=== PATIENT | female | born 1960 | race Hispanic/Latino ===

== ENCOUNTER 2018-07-16 17:04 | Inpatient (IN) | payer MEDICARE ==
[2018-07-16 17:29] VITALS: BMI 26.4
[2018-07-16] MEDS ORDERED: Magnesium Hydroxide Susp 30 ml UD PO PRN (17:35)
[2018-07-16] MEDS ORDERED: Bismuth Subsalicylate 262 mg/15 ml Sus (240 ml) PO PRN (17:35)
--- NOTE | 2018-07-16 21:29 | PCM.BM ---
<Buddy Durant - Last Filed: 07/16/18 21:27> Treatment Plan Problems - Problems identified on initial assessmt Altered Thought Process Date Initiated: 07/16/18 Time Initiated: 21:28 Assessment reference: NA Status: Active Treatment assets and liabiliti Patient Assests: adapts well, cooperative, ADL independent, negotiates basic needs Patient Liabilities: medical problems - Milieu Protocol Maintain good personal hygiene: daily Encourage regular showers, daily Remind patient to perform daily oral care, daily Assist patient to perform ADL's Maintain personal safety: every shift Educate patient to report safety concerns to staff, every shift Monitor environment for contraband/sharps Medication safety: Monitor for expected outcome, potential side effects: every shift, Assess barriers to learning: every shift, Assess readiness for medication education: every shift <Bev Berman - Last Filed: 07/17/18 11:33> - Diagnosis (1) Bipolar disorder with psychotic features Status: Acute Interventions: Medication management, Individual and group therapy, Psychoeducation 07/17/18 11:33 <Mamie Mora - Last Filed: 07/17/18 13:44> Treatment Plan Problems - Problems identified on initial assessmt Ineffective Impulse Control Date Initiated: 07/16/18 Assessment reference: NA Status: Active Priority: 2 Depression Date Initiated: 07/17/18 Time Initiated: 13:08 Assessment reference: SW Status: Active Priority: 3 Family Contact Family involvement: Famliy/SO not involved Family contact: Other (Pt unable to contact spouse due to active restraining order. ) - Goals for Treatment Patient goals for treatment: Pt will improve overall mood. Pt will be free of suicidal ideation. Pt will develop strategies for thought ditration when ruminating on the past. Pt will learn and use conflict resolution skills. Pt will learn to express feelings verbally without acting out. Pt will explore and resolve conflict with immediate family. Pt will learn to manage with physical healthcare conditions and cope with related stress. Discharge/Continuing Care - Education Needs Education Needs: Family Medication, Family Diagnosis/Disease Process, Family Coping Skills, Family Community resources, Family Health Practices/Safety, Family Personal Hygiene/Grooming, Family Aftercare Safety Plan, Patient Medication, Patient Diagnosis/Disease Process, Patient Coping Skills, Patient Community resources, Patient Health Practices/Safety, Patient Personal Hygiene/Grooming, Patient Aftercare Safety Plan - Discharge Discharge Criteria: Tolerates medication w/o severe side effects, Free of Suicidal thoughts, Free of agitation, Normal sleep pattern, Ability to care for self, Reduction of target symptoms Discharge to:: Home, With Family - Additional Comments 07/17/18 13:18 Pt seen and discussed in team meeting. Reason for admissions reviewed and discussed. Pt was a transfer form [facility]. Pt reported she was referred to [facility] because the psychiatric unit at [facility] is under construction and due to medical issues she cannot be admitted to that same unit. Pt reported being dx with bipolar disorder,depressed type. Pt reported she was first dx in 2011. Pt reported feeling depressed and anxious. Pt was labile during team meeting. Pt observed to be tearful. Pt reported auditory hallucinations stating "that ugly looking doctor." Pt reported that the voices she hears is from a previous psychiatrist and she hears "he is a liar." Pt denied visual hallucinations. Pt reported appetite disturbances reported that she lost weight, unknown pounds. Pt reported "good" sleep pattern. Pt reported having some family issues, but refused to provide further information. Pt reported she does not have an outpatient psychiatrist and that her lung specialist, Dr. Jonel MD was refilling her psych meds. Pt reported that she is or was scheduled to visit [facility]; however, due to hospitalization was unable to make it or will be unable to make it. Pt reported she does not recall for when the appointment was scheduled. Pt denied SI and HI. Pt denied nay paranoia. Pt's medical and social issues reviewed and discussed. Pt's medications reviewed. Please refer to Dr. Berman's progress note for information. Tx plan reviewed and discussed. Pt is agreeable to SW contacting daughterBelia for collateral information and [facility] to re-schedule appointment. Sw to continue to follow case. - Treatment Team Participation Discussed with Family/SO: No Was Patient/Family/SO present at Treatment Team Meeting: Yes
[2018-07-16] MEDS: Insulin Lispro (humaLOG) 100 Units/ml Inj SC SCH (21:35)
[2018-07-16] MEDS: Albuterol 0.083% Inhal Sol (2.5 mg/3 mL) UD IH PRN (22:41)
[2018-07-17 00:37] LABS: SQUAMOUS EPITHIAL 19 /hpf (0-5); URINE BACTERIA RARE (<OCC); URINE BILIRUBIN NEGATIVE (NEGATIVE); URINE BLOOD SMALL (NEGATIVE); URINE CLARITY CLOUDY (Clear); URINE COLOR YELLOW (YELLOW); URINE GLUCOSE (UA) NEG (NEGATIVE); URINE LEUKOCYTE ESTERASE SMALL Leu/uL (Negative); URINE PROTEIN NEGATIVE (NEGATIVE); URINE UROBILINOGEN 0.2-1.0 mg/dL (0.2-1.0)
[2018-07-17 06:55] LABS: HEMOGLOBIN 11.2 g/dL (12.0-16.0); MEAN CELL VOLUME 79.6 fl (81.0-99.0); MEAN CORPUSCULAR HEMOGLOBIN 25.7 pg (27.0-31.0); MEAN CORPUSCULAR HGB CONC 32.2 g/dL (33.0-37.0); RBC 4.37 Mil/uL (3.80-5.20); RED CELL DISTRIBUTION WIDTH 16.7 % (11.5-14.5); WHITE BLOOD COUNT 13.6 K/uL (4.8-10.8)
[2018-07-17 08:05] LABS: ALB/GLOB RATIO 1.2 (1.0-2.1); ALBUMIN 3.5 g/dL (3.5-5.0); CALCIUM 9.4 mg/dL (8.4-10.2)
[2018-07-17 08:22] LABS: T4 7.92 ug/dl (5.5-11.0)
[2018-07-17 08:40] LABS: FERRITIN 15.2 ng/Ml (11.1-264.0)
[2018-07-17] MEDS: Insulin Lispro (humaLOG) 100 Units/ml Inj SC SCH ×4 (08:45→21:14)
[2018-07-17] MEDS: Fluticasone-Salmeterol 100-50mcg Diskus INH SCH ×2 (10:41→21:11)
--- NOTE | 2018-07-17 11:37 | PCM.PSYCH ---
Initial Psychiatric Evaluation - Initial Psychiatric Evaluation Type of Admission: Voluntary Legal Status: Capacity Chief Complaint (in patient's own words): Depression Patient's Reaction to Hospitalization: HPI: 58 yo female w/ h/o Bipolar Disorder w/ Psychotic Features, transferred from [facility], w/ symptoms of worsening depression w/ AH of her previous psychiatrist (No CAH), feelings of hopelessness, and sleep/appetite disturbances. No VH/SI/HI. PPHx: First psychiatrist hospitalization in 2011 at [facility]. >5 psychiatric hospitalizations. Patient has poor compliance with outpatient follow-up following psychiatric admissions. Currently prescribed Cogentin (for EPS), Topamax and Klonopin PMHx: Asthma, COPD ALL: Cefaclor, PCN; (melon, peach, apple) SHx: Lives w/ stepfather, (2012), has adult child (24 yrs old), works in a daycare in [place], denies drugs/etoh/cig use Current Medications: Active Medications Generic Name Dose Route Start Last Admin Trade Name Freq PRN Reason Stop Dose Admin Acetaminophen 650 mg 07/16/18 17:35 Tylenol 325mg Tab PO Q4 PRN Pain, moderate (4-7) Al Hydrox/Mg Hydrox/Simethicone 30 ml 07/16/18 17:35 Maalox Plus 30 Ml PO Q4 PRN Dyspepsia Albuterol Sulfate 2.5 mg 07/16/18 18:05 07/16/18 22:41 Albuterol 0.083% Inhal Darline (2.5 Mg/3 Ml) Ud IH 2.5 mg Q4 PRN Administration SOB Benztropine Mesylate 1 mg 07/17/18 22:00 Cogentin PO HS FRANKIE Benztropine Mesylate 1 mg 07/17/18 11:35 Cogentin PO Q8H PRN EPS Bismuth Subsalicylate 524 mg 07/16/18 17:35 Pepto-Bismol PO Q4 PRN Diarrhea Insulin Human Lispro 0 units 07/16/18 22:00 07/17/18 08:45 Humalog SC Not Given ACHS FRANKIE Protocol Lorazepam 0.5 mg 07/16/18 17:35 Ativan PO 07/30/18 17:36 HS PRN Insomnia Lorazepam 0.5 mg 07/16/18 17:35 Ativan PO 07/30/18 17:36 Q6 PRN Anixety/Agitation Magnesium Hydroxide 30 ml 07/16/18 17:35 Milk Of Magnesia PO HS PRN Constipation Montelukast Sodium 10 mg 07/16/18 22:00 07/16/18 21:11 Singulair PO 10 mg HS FRANKIE Administration Perphenazine 4 mg 07/17/18 22:00 Perphenazine PO HS FRANKIE Fluticasone/Salmeterol 1 puff 07/17/18 09:00 07/17/18 10:41 Advair Diskus 100/50 INH 1 puff Q12 FRANKIE Administration Sucralfate 1 gm 07/17/18 09:00 07/17/18 10:42 Carafate Tab PO 1 gm BID FRANKIE Administration Topiramate 50 mg 07/16/18 22:00 07/16/18 21:10 Topamax PO 50 mg HS FRANKIE Administration Topiramate 100 mg 07/17/18 09:00 07/17/18 10:43 Topamax PO 100 mg BID FRANKIE Administration Past Psychiatric History - Past Psychiatric History Previous Treatment History: Inpatient Pertinent Medical Hx (Current Medical&Sleep Prob, Allergies): Allergies Allergy/AdvReac Type Severity Reaction Status Date / Time cefaclor [From [facility]] Allergy ANAPHYLAXIS Verified 07/16/18 16:29 melon Allergy ANAPHYLAXIS Verified 07/16/18 22:29 peach Allergy ANAPHYLAXIS Verified 07/16/18 22:29 Penicillins Allergy ANAPHYLAXIS Verified 07/16/18 16:29 apple AdvReac ANAPHYLAXIS Verified 07/16/18 22:29 Albuterol 0.083% [Albuterol 0.083% Inhal Darline (2.5 mg/3 ml) UD] 1 inh NEB Q6 07/16/18 Benztropine [Cogentin] 2 mg PO Q12 07/16/18 Fluticasone/Vilanterol 100/25 [Breo Ellipta 100-25 MCG INH] 1 inh INH QD7 07/16/18 Montelukast Sodium [Singulair] 10 mg PO HS 07/16/18 Sucralfate [Carafate] 1 gm PO BID 07/16/18 Topiramate [Topamax] 50 mg PO HS 07/16/18 Topiramate [Topamax] 100 mg PO BID 07/16/18 clonazePAM HALF TAB [Klonopin- HALF TAB] 0.25 mg PO Q12 07/16/18 Review of Systems - Psychiatric Psychiatric: As Per HPI, Anhedonia, Anxiety, Auditory Hallucinations, Behavioral Changes, Change in Appetite, Depression, Difficulty Concentrating, Hallucinations, Hopelessness, Irritability Mental Status Examination - Personal Presentation Personal Presentation: Looks stated age - Affect Affect: Depressed, Other (Labile) - Motor Activity Motor Activity: Calm - Reliability in Providing Information Reliability in Providing Information: Fair - Speech Speech: Organized, Coherent - Mood Mood: Depressed, Anxious - Formal Thought Process Formal Thought Process: Hallucinations - Hallucinations/Delusions Hallucinations: Auditory - Obsessions/Compulsions Obsessions: No Compulsions: No - Cognitive Functions Orientation: Person, Place, Situation, Time Sensorium: Alert Attention/Concentration: Attentive Estimate of Intelligence: Average Judgement: Intact, as evidence by: Insight regarding need for hospitalization Memory: Recent intact, as evidence by: Ability to recall events of the day - Risk Risk: Diminished functioning - Strength & Assets Inventory Strength & Assets Inventory: Cooperative DSM 5 DX - DSM 5 DSM 5 Diagnosis: Bipolar Disorder w/ Psychotic Features - Recommended/Plan of Treatment Treatment Recommendations and Plan of Treatment: Bipolar Disorder w/ Psychotic Features -Admit to psychiatry unit -Hold Klonopin -Continue Topamax -Start Perphenazine -Continue Cogentin -Medicine consult -Individual and group therapy -Psychoeducation -Disposition planning Projected ELOS: 5-7 days Discharge Plan and Discharge Criteria: Discharge when patient is psychiatrically stable - Smoking Cessation Smoking Cessation Initiated: No Reason for not providing: Not indicated
[2018-07-17 12:57] LABS: FOLATE 14.4 ng/mL
--- NOTE | 2018-07-17 15:38 | CP.PCM.CON ---
History of Present Illness - History of Present Illness History of Present Illness: 58 yo female with history of Bipolar DO, Asthma and Hypothyroidism admitted to psyche unit, a tranfer from [facility], because of worsening depression. Review of Systems - Review of Systems All systems: reviewed and no additional remarkable complaints except (aside from those mentioned above, 12 point system review were negative by me) Past Patient History - Tetanus Immunizations Tetanus Immunization: Unknown - Past Social History Smoking Status: Never Smoked Chewing Tobacco Use: No Cigar Use: No Alcohol: Occasional - PULMONARY Hx Asthma: Yes - NEUROLOGICAL Hx Neurological Disorder: No - HEENT Hx HEENT Problems: No - RENAL Hx Chronic Kidney Disease: No - ENDOCRINE/METABOLIC Hx Diabetes Mellitus Type 2: Yes Hx Hypothyroidism: Yes - HEMATOLOGICAL/ONCOLOGICAL Hx Blood Disorders: Yes Other/Comment: wagners disease - INTEGUMENTARY Hx Dermatological Problems: No - MUSCULOSKELETAL/RHEUMATOLOGICAL Hx Arthritis: Yes - GASTROINTESTINAL Hx Gastrointestinal Disorders: No - GENITOURINARY/GYNECOLOGICAL Hx Genitourinary Disorders: No - PSYCHIATRIC Hx Bipolar Disorder: Yes Hx Substance Use: No - SURGICAL HISTORY Hx Surgeries: Yes - ANESTHESIA Hx Anesthesia: Yes Hx Anesthesia Reactions: No Meds Allergies/Adverse Reactions: Allergies Allergy/AdvReac Type Severity Reaction Status Date / Time cefaclor [From [facility]] Allergy ANAPHYLAXIS Verified 07/16/18 16:29 melon Allergy ANAPHYLAXIS Verified 07/16/18 22:29 peach Allergy ANAPHYLAXIS Verified 07/16/18 22:29 Penicillins Allergy ANAPHYLAXIS Verified 07/16/18 16:29 apple AdvReac ANAPHYLAXIS Verified 07/16/18 22:29 - Medications Medications: Current Medications Acetaminophen (Tylenol 325mg Tab) 650 mg PO Q4 PRN PRN Reason: Pain, moderate (4-7) Al Hydrox/Mg Hydrox/Simethicone (Maalox Plus 30 Ml) 30 ml PO Q4 PRN PRN Reason: Dyspepsia Albuterol Sulfate (Albuterol 0.083% Inhal Darline (2.5 Mg/3 Ml) Ud) 2.5 mg IH Q4 PRN PRN Reason: SOB Last Admin: 07/16/18 22:41 Dose: 2.5 mg Atorvastatin Calcium (Lipitor) 40 mg PO HS FRANKIE Benztropine Mesylate (Cogentin) 1 mg PO HS FRANKIE Benztropine Mesylate (Cogentin) 1 mg PO Q8H PRN PRN Reason: EPS Bismuth Subsalicylate (Pepto-Bismol) 524 mg PO Q4 PRN PRN Reason: Diarrhea Insulin Human Lispro (Humalog) 0 units SC [facility]; Protocol Last Admin: 07/17/18 13:09 Dose: Not Given Levothyroxine Sodium (Synthroid) 100 mcg PO DAILY@0630 [facility] Lorazepam (Ativan) 0.5 mg PO HS PRN PRN Reason: Insomnia Stop: 07/30/18 17:36 Lorazepam (Ativan) 0.5 mg PO Q6 PRN PRN Reason: Anixety/Agitation Stop: 07/30/18 17:36 Magnesium Hydroxide (Milk Of Magnesia) 30 ml PO HS PRN PRN Reason: Constipation Montelukast Sodium (Singulair) 10 mg PO HS [facility] Last Admin: 07/16/18 21:11 Dose: 10 mg Pantoprazole Sodium (Protonix Ec Tab) 40 mg PO DAILY [facility] Perphenazine (Perphenazine) 4 mg PO HS [facility] Prednisone (Prednisone Tab) 10 mg PO DAILY [facility] Fluticasone/Salmeterol (Advair Diskus 100/50) 1 puff INH Q12 [facility] Last Admin: 07/17/18 10:41 Dose: 1 puff Sucralfate (Carafate Tab) 1 gm PO BID [facility] Last Admin: 07/17/18 10:42 Dose: 1 gm Topiramate (Topamax) 50 mg PO HS [facility] Last Admin: 07/16/18 21:10 Dose: 50 mg Topiramate (Topamax) 100 mg PO BID [facility] Last Admin: 07/17/18 10:43 Dose: 100 mg Physical Exam - Constitutional Appears: No Acute Distress - Head Exam Head Exam: ATRAUMATIC - Eye Exam Eye Exam: absent: Scleral icterus - ENT Exam ENT Exam: Mucous Membranes Moist - Neck Exam Neck exam: Negative for: Meningismus - Respiratory Exam Respiratory Exam: absent: Rales, Rhonchi, Wheezes, Respiratory Distress - Cardiovascular Exam Cardiovascular Exam: REGULAR RHYTHM, +S1, +S2 - GI/Abdominal Exam GI & Abdominal Exam: Soft. absent: Tenderness - Rectal Exam Rectal Exam: Deferred - Extremities Exam Extremities exam: Negative for: pedal edema - Back Exam Back exam: NORMAL INSPECTION - Neurological Exam Neurological exam: Alert, Oriented x3 - Psychiatric Exam Psychiatric exam: Normal Affect - Skin Skin Exam: Dry, Intact Results - Vital Signs Recent Vital Signs: Last Vital Signs Temp 97.9 F 07/17/18 06:00 Pulse 92 H 07/17/18 06:00 Resp 19 07/17/18 06:00 BP 130/86 07/17/18 06:00 Pulse Ox - Labs Result Diagrams: 07/17/18 06:40 07/17/18 06:40 Labs: Laboratory Results - last 24 hr 07/16/18 07/16/18 07/17/18 20:34 22:45 06:02 WBC RBC Hgb Hct MCV MCH MCHC RDW Plt Count Sodium Potassium Chloride Carbon Dioxide Anion Gap BUN Creatinine Est GFR ( Amer) Est GFR (Non-Af Amer) POC Glucose (mg/dL) 146 H 92 Random Glucose Hemoglobin A1c Calcium Ferritin Total Bilirubin AST ALT Alkaline Phosphatase Total Protein Albumin Globulin Albumin/Globulin Ratio Triglycerides Cholesterol LDL Cholesterol Direct HDL Cholesterol Vitamin B12 Folate Thyroxine (T4) TSH 3rd Generation Urine Color Yellow Urine Clarity Cloudy Urine pH 5.0 Ur Specific [place] 1.023 Urine Protein Negative Urine Glucose (UA) Neg Urine Ketones Negative Urine Blood Small Urine Nitrate Negative Urine Bilirubin Negative Urine Urobilinogen 0.2-1.0 Ur Leukocyte Esterase Small Urine RBC (Auto) 2 Urine Microscopic WBC 17 H Ur Squamous Epith Cells 19 H Urine Bacteria Rare 07/17/18 07/17/18 07/17/18 06:40 06:40 06:40 WBC 13.6 H RBC 4.37 Hgb 11.2 L Hct 34.8 MCV 79.6 L MCH 25.7 L MCHC 32.2 L RDW 16.7 H Plt Count 253 Sodium 140 Potassium 3.3 L Chloride 109 H Carbon Dioxide 23 Anion Gap 11 BUN 21 H Creatinine 1.2 Est GFR ( Amer) 56 Est GFR (Non-Af Amer) 46 POC Glucose (mg/dL) Random Glucose 96 Hemoglobin A1c 6.6 H Calcium 9.4 Ferritin 15.2 Total Bilirubin 0.3 AST 16 ALT 26 Alkaline Phosphatase 77 Total Protein 6.6 Albumin 3.5 Globulin 3.0 Albumin/Globulin Ratio 1.2 Triglycerides 142 Cholesterol 185 LDL Cholesterol Direct 111 HDL Cholesterol 49 Vitamin B12 262 Folate 14.4 Thyroxine (T4) 7.92 TSH 3rd Generation 4.51 Urine Color Urine Clarity Urine pH Ur Specific [place] Urine Protein Urine Glucose (UA) Urine Ketones Urine Blood Urine Nitrate Urine Bilirubin Urine Urobilinogen Ur Leukocyte Esterase Urine RBC (Auto) Urine Microscopic WBC Ur Squamous Epith Cells Urine Bacteria Assessment & Plan (1) Depression Status: Acute Comment: psyche is managing (2) Asthma Status: Inactive Comment: asymptomatic. Duoneb nebulizer q 4hrs prn (3) Hypothyroid Status: Chronic Comment: TSH: 4.51. continue Levothyroxine
[2018-07-17] MEDS: Albuterol 0.083% Inhal Sol (2.5 mg/3 mL) UD IH PRN (18:33)
[2018-07-17] MEDS: Alum-Mag Hydrox-Simethicone Susp (30 mL) PO PRN (19:48)
[2018-07-17] MEDS ORDERED: Potassium Chloride 20 mEq ER Tab PO ONE (22:57)
[2018-07-18] MEDS: Alum-Mag Hydrox-Simethicone Susp (30 mL) PO PRN (02:15)
[2018-07-18] MEDS: Levothyroxine 100 MCG TAB PO SCH (06:11)
[2018-07-18] MEDS: Fluticasone-Salmeterol 100-50mcg Diskus INH SCH ×2 (08:36→22:07)
[2018-07-18] MEDS: Pantoprazole 40 mg EC Tab PO SCH (08:37)
[2018-07-18] MEDS: Insulin Lispro (humaLOG) 100 Units/ml Inj SC SCH ×4 (08:41→22:08)
[2018-07-18] MEDS ORDERED: PREDNISONE 10 MG PO SCH (09:00)
--- NOTE | 2018-07-18 12:54 | PCM.PYCHPN ---
Psychiatric Progress Note - Psychiatric Progress Note Patient seen today, length of contact: Pt evaluated, case discussed w/ team, chart reviewed Patient Chief Complaint: Depression Problems Identified/Issues Discussed: Pt continues to feel depressed and anxiety. Pt continues to hear AH of her old psychiatrist. The voice says "I argue a lot with people and I need to be by myself." Denies direct CAH. She continues to be somatically preoccupied. Denies SI/HI. Medication Change: No Medical Record Reviewed: Yes Consults ordered or reviewed: Medicine consult Mental Status Examination - Cognitive Function Orientation: Person, Place, Situation, Time Memory: Intact Association: WNL Fund of Knowledge: [facility] Decription of patient's judgement and insights: Poor I/J - Mood Mood: Depressed, Anxious - Affect Affect: Depressed, Other (Labile) - Formal Thought Process Formal Thought Process: Hallucinations Psychotic Thoughts and Behaviors: +AH - Suicidal Ideation Suicidal Ideation: No - Homicidal Ideation Homicidal Ideation: No Goal/Treatment Plan - Goal/Treatment Plan Need for Continued Stay: Remain at risks for inpatient hospitalization, Severe depression anxiety Progress Toward Problem(s) and Goals/Treatment Plan: Bipolar Disorder w/ Psychotic Features -Continue Topamax -Continue Perphenazine -Continue Cogentin -Medicine consult -Individual and group therapy -Psychoeducation -Disposition planning
[2018-07-18] MEDS ORDERED: Potassium Chloride 20 mEq/15 ml LIQ UD PO ONE (13:15)
[2018-07-18] MEDS: Sucralfate 1 gm/10 ml Oral Susp UD PO SCH (16:59)
[2018-07-18] MEDS: Albuterol 0.083% Inhal Sol (2.5 mg/3 mL) UD IH PRN (20:32)
[2018-07-19] MEDS: Levothyroxine 100 MCG TAB PO SCH (06:16)
[2018-07-19] MEDS: Albuterol 0.083% Inhal Sol (2.5 mg/3 mL) UD IH PRN ×2 (06:29→15:41)
[2018-07-19 08:45] LABS: BASO # 0.1 K/uL (0.0-0.2); BASO % 0.7 % (0.0-2.0); EOS # 0.2 K/uL (0.0-0.7); EOS % 1.8 % (0.0-4.0); HEMOGLOBIN 10.8 g/dL (12.0-16.0); LYMPH # 2.9 K/uL (1.0-4.3); LYMPH % 26.5 % (20.0-40.0); MEAN CELL VOLUME 80.5 fl (81.0-99.0); MEAN CORPUSCULAR HGB CONC 32.3 g/dL (33.0-37.0); MEAN PLATELET VOLUME 8.9 fl (7.2-11.7); MONO # 0.6 K/uL (0.0-0.8); MONO % 5.2 % (0.0-10.0); NEUT # 7.2 K/uL (1.8-7.0); NEUT % 65.8 % (50.0-75.0); RBC 4.16 Mil/uL (3.80-5.20); RED CELL DISTRIBUTION WIDTH 16.7 % (11.5-14.5)
[2018-07-19 08:48] LABS: BLOOD UREA NITROGEN 21 mg/dl (7-17); CALCIUM 9.1 mg/dL (8.4-10.2); GFR NON-AFRICAN AMERICAN 51
[2018-07-19] MEDS: Sucralfate 1 gm/10 ml Oral Susp UD PO SCH ×2 (09:05→16:57)
[2018-07-19] MEDS: Insulin Lispro (humaLOG) 100 Units/ml Inj SC SCH ×4 (09:06→21:14)
[2018-07-19] MEDS: Fluticasone-Salmeterol 100-50mcg Diskus INH SCH ×2 (10:09→21:11)
[2018-07-19] MEDS: Pantoprazole 40 mg EC Tab PO SCH (10:10)
--- NOTE | 2018-07-19 11:24 | PCM.PYCHPN ---
Psychiatric Progress Note - Psychiatric Progress Note Patient seen today, length of contact: Pt evaluated, case discussed w/ team, chart reviewed Patient Chief Complaint: Depression Problems Identified/Issues Discussed: Pt continues to feel depressed, anxious w/ AH of her old psychiatrist at night. She continues to be somatically preoccupied. Denies SI/HI. Medication Change: Yes (Increase Perphenazine) Medical Record Reviewed: Yes Consults ordered or reviewed: Medicine consult Mental Status Examination - Cognitive Function Orientation: Person, Place, Situation, Time Memory: Intact Association: WNL Fund of Knowledge: [facility] Decription of patient's judgement and insights: Poor I/J - Mood Mood: Depressed, Anxious - Affect Affect: Depressed, Other (Labile) - Formal Thought Process Formal Thought Process: Circumstantial Psychotic Thoughts and Behaviors: +AH at night - Suicidal Ideation Suicidal Ideation: No - Homicidal Ideation Homicidal Ideation: No Goal/Treatment Plan - Goal/Treatment Plan Need for Continued Stay: Remain at risks for inpatient hospitalization, Severe depression anxiety Progress Toward Problem(s) and Goals/Treatment Plan: Bipolar Disorder w/ Psychotic Features -Continue Topamax -Increase Perphenazine -Continue Cogentin -Medicine consult -Individual and group therapy -Psychoeducation -Disposition planning
[2018-07-19] MEDS ORDERED: Potassium Chloride 20 mEq/15 ml LIQ UD PO ONE (12:00)
[2018-07-20] MEDS: Albuterol 0.083% Inhal Sol (2.5 mg/3 mL) UD IH PRN ×2 (00:18→10:21)
[2018-07-20] MEDS: Levothyroxine 100 MCG TAB PO SCH (06:06)
[2018-07-20] MEDS: Fluticasone-Salmeterol 100-50mcg Diskus INH SCH ×2 (08:10→22:52)
[2018-07-20] MEDS: Pantoprazole 40 mg EC Tab PO SCH (08:10)
[2018-07-20] MEDS: Insulin Lispro (humaLOG) 100 Units/ml Inj SC SCH ×4 (08:11→22:53)
[2018-07-20] MEDS: Sucralfate 1 gm/10 ml Oral Susp UD PO SCH ×2 (08:11→17:42)
--- NOTE | 2018-07-20 09:20 | PCM.PYCHPN ---
Psychiatric Progress Note - Psychiatric Progress Note Patient seen today, length of contact: Pt evaluated, case discussed w/ team, chart reviewed Patient Chief Complaint: Depression Problems Identified/Issues Discussed: Pt reports feeling less depressed, but she continues to feel anxious. She reports less AH. She continues to be somatically preoccupied. Denies SI/HI. NO EPS reported. Medication Change: Yes (Decrease Cogentin) Medical Record Reviewed: Yes Consults ordered or reviewed: Medicine consult Mental Status Examination - Cognitive Function Orientation: Person, Place, Situation, Time Memory: Intact Association: WNL Fund of Knowledge: [facility] Decription of patient's judgement and insights: Poor I/J - Mood Mood: Depressed, Anxious - Affect Affect: Other (Labile) - Formal Thought Process Formal Thought Process: Circumstantial Psychotic Thoughts and Behaviors: Denies acute AH - Suicidal Ideation Suicidal Ideation: No - Homicidal Ideation Homicidal Ideation: No Goal/Treatment Plan - Goal/Treatment Plan Need for Continued Stay: Remain at risks for inpatient hospitalization, Severe depression anxiety Progress Toward Problem(s) and Goals/Treatment Plan: Bipolar Disorder w/ Psychotic Features -Continue Topamax -Continue Perphenazine -Decrease Cogentin -Medicine consult -Individual and group therapy -Psychoeducation -Disposition planning Estimated Date of D/C: 07/22/18
[2018-07-20] MEDS: Albuterol-Ipratrop 3 mg / 0.5 (3 ml) UD INH PRN ×2 (17:15→22:21)
[2018-07-20] MEDS: Vitamin A/D oint 60G TP PRN (23:01)
[2018-07-21] MEDS: Albuterol-Ipratrop 3 mg / 0.5 (3 ml) UD INH PRN ×3 (01:53→21:17)
[2018-07-21] MEDS: Levothyroxine 100 MCG TAB PO SCH (05:49)
[2018-07-21 06:42] LABS: BLOOD UREA NITROGEN 18 mg/dl (7-17); CALCIUM 9.3 mg/dL (8.4-10.2); GFR NON-AFRICAN AMERICAN 57
[2018-07-21] MEDS: Insulin Lispro (humaLOG) 100 Units/ml Inj SC SCH ×4 (08:53→22:10)
[2018-07-21] MEDS: Sucralfate 1 gm/10 ml Oral Susp UD PO SCH ×2 (08:56→16:36)
[2018-07-21] MEDS: Fluticasone-Salmeterol 100-50mcg Diskus INH SCH ×2 (08:56→21:27)
[2018-07-21] MEDS: Pantoprazole 40 mg EC Tab PO SCH (08:57)
--- NOTE | 2018-07-21 10:55 | PCM.PYCHPN ---
Psychiatric Progress Note - Psychiatric Progress Note Patient seen today, length of contact: Pt evaluated, case discussed w/ team, chart reviewed Patient Chief Complaint: Depression Problems Identified/Issues Discussed: Pt continues to report improvement in mood. She denies acute AH/VH/paranoia/SI/HI. She denies adverse effects to medication or EPS. Medication Change: Yes (Stop Cogentin ) Medical Record Reviewed: Yes Consults ordered or reviewed: Medicine consult, [employer] evaluation Mental Status Examination - Cognitive Function Orientation: Person, Place, Situation, Time Memory: Intact Attention: WNL Concentration: WNL Association: WNL Fund of Knowledge: [facility] Decription of patient's judgement and insights: Improving I/J - Mood Mood: Depressed, Anxious - Affect Affect: Broad - Speech Speech: Appropriate - Formal Thought Process Formal Thought Process: No Impairment Psychotic Thoughts and Behaviors: Denies AH/VH/paranoia/delusions - Suicidal Ideation Suicidal Ideation: No - Homicidal Ideation Homicidal Ideation: No Goal/Treatment Plan - Goal/Treatment Plan Need for Continued Stay: Severe depression anxiety Progress Toward Problem(s) and Goals/Treatment Plan: Bipolar Disorder w/ Psychotic Features -Continue Topamax -Continue Perphenazine -Stop Cogentin -Medicine consult -Individual and group therapy -Psychoeducation -Disposition planning- patient is improving clinically, will likely discharge tomorrow Estimated Date of D/C: 07/22/18
[2018-07-21] MEDS ORDERED: Potassium Chloride 20 mEq ER Tab PO ONE (12:33)
[2018-07-21] MEDS ORDERED: Potassium Chloride 20 mEq/15 ml LIQ UD PO ONE (13:15)
[2018-07-21] MEDS: Vitamin A/D oint 60G TP PRN (21:31)
[2018-07-22] MEDS: Alum-Mag Hydrox-Simethicone Susp (30 mL) PO PRN (00:49)
[2018-07-22] MEDS: Levothyroxine 100 MCG TAB PO SCH (06:18)
[2018-07-22 06:20] VITALS: BP 111/70; PULSE 85; RESP 20; TEMP 98.6
[2018-07-22] MEDS: Fluticasone-Salmeterol 100-50mcg Diskus INH SCH (08:37)
[2018-07-22] MEDS: Sucralfate 1 gm/10 ml Oral Susp UD PO SCH (08:37)
[2018-07-22] MEDS: Insulin Lispro (humaLOG) 100 Units/ml Inj SC SCH (08:38)
--- NOTE | 2018-07-22 08:38 | PCM.PYCHDC ---
Mental Status Examination - Mental Status Examination Orientation: Person, Place, Situation, Time Memory: Intact Mood: Neutral Affect: Broad Speech: Appropriate Attention: WNL Concentration: WNL Association: WNL Fund of Knowledge: WNL Formal Thought Process: No Impairment Description of patient's judgement and insight: Good I/J Psychotic Thoughts and Behaviors: Denies AH/VH/paranoia/delusions Suicidal Ideation: No Current Homicidal Ideation?: No Discharge Summary - Discharge Note Reason for Hospitalization: HPI: 58 yo female w/ h/o Bipolar Disorder w/ Psychotic Features, transferred from [facility], w/ symptoms of worsening depression w/ AH of her previous psychiatrist (No CAH), feelings of hopelessness, and sleep/appetite disturbances. No VH/SI/HI. PPHx: First psychiatrist hospitalization in 2011 at [facility]. >5 psychiatric hospitalizations. Patient has poor compliance with outpatient follow-up following psychiatric admissions. Currently prescribed Cogentin (for EPS), Topamax and Klonopin PMHx: Asthma, COPD ALL: Cefaclor, PCN; (melon, peach, apple) SHx: Lives w/ stepfather, (2012), has adult child (24 yrs old), works in a daycare in [place], denies drugs/etoh/cig use Laboratory Data: Abnormal Lab Results 07/21/18 07/21/18 07/21/18 05:41 11:14 15:50 POC Glucose (mg/dL) 82 122 H 130 H 07/21/18 07/22/18 19:25 05:59 POC Glucose (mg/dL) 124 H 97 Consultations:: List each consultation separately and include: 1. Reason for request. 2. Findings. 3. Follow-up Consultations: Medicine consult, TIRE BAGGER evaluation Summary of Hospital Course include:: 1. Description of specific treatment plan utilized for patients during their course of treatmen. 2. Summarize the time- course for resolution of acute symptoms and/or regressed behaviors. 3. Describe issues identified and worked on during hospitalization. 4. Describe medication utilized. 5. Describe medical problems identified and treated. 6. Reassessment of suicide risk Summary of Hospital Course: Patient was admitted to the psychiatry unit. Individual and group therapy were provided. Patient was stabilized on Topamax 100 mg PO AM/ 150 mg @1700 and Perphenazine 8 mg PO HS. She denies acute depression/anxiety/AH/VH/paranoia/delusions. She is currently psychiatrically stable for discharge with outpatient follow-up. Patient to follow-up with her PMD, [facility] and Gastrointerologist for her chronic medical conditions. - Diagnosis (1) Bipolar disorder with psychotic features Current Visit: Yes Status: Chronic - Final Diagnosis (DSM 5) Condition upon Discharge: STABLE DSM 5: Bipolar Disorder with Psychotic Features Disposition: HOME/ ROUTINE Follow-up Treatment Plan: Bipolar Disorder w/ Psychotic Features; patient is psychiatrically stable for discharge at this time -Continue Topamax -Continue Perphenazine -Medicine consult -TIRE BAGGER evaluation -Individual and group therapy -Psychoeducation Prescriptions/Medication Reconciliation: Pantoprazole [Protonix EC Tab] 40 mg PO DAILY #30 ect Perphenazine 8 mg PO HS #30 tab Sucralfate [Carafate Tab] 1 gm PO BID #60 tab Topiramate [Topamax] 100 mg PO BID #60 tab Topiramate [Topamax] 50 mg PO DAILY@1700 #30 tablet - Smoking Cessation Smoking Cessation Medication prescribed: No Reason for not providing: Not indicated - Antipsychotic Medications Pt discharged on 2 or more routine antipsychotic medications: No
[2018-07-22] MEDS: Pantoprazole 40 mg EC Tab PO SCH (08:39)
[2018-07-22] MEDS: Albuterol-Ipratrop 3 mg / 0.5 (3 ml) UD INH PRN (09:05)
== END 2018-07-22 09:30 | disposition home or self-care (01) | DRG 885 ==
LOC: H.STEP 17:29
PROVIDERS: ADMIT Psychiatry & Neurology Psychiatry; ATTEND Psychiatry & Neurology Psychiatry
PROC: GZHZZZZ Group Psychotherapy (ICD-10-PCS; principal; 2018-07-16)
DX: F31.9 Bipolar disorder, unspecified (principal); E03.9 Hypothyroidism, unspecified; E11.9 Type 2 diabetes mellitus without complications; J44.9 Chronic obstructive pulmonary disease, unspecified; Z88.0 Allergy status to penicillin; Z91.018 Allergy to other foods